=== PATIENT | female | born 1960 | race African-American/Black ===

== ENCOUNTER 2017-07-15 21:06 | Emergency (ER) | payer SELFPAY ==
[~2017-07-15] VITALS: Ht 157.5 cm; Wt 79.5 kg
[2017-07-15] MEDS ORDERED: IBUPROFEN 600MG TABLET PO ONE (22:45)
[2017-07-15] MEDS ORDERED: CYCLOBENZAPRINE 10MG TABLET PO ONE (22:45)
[2017-07-16 00:27] VITALS: BP 151/94
== END 2017-07-16 00:33 | disposition home or self-care (01) ==
LOC: ER 21:06
DX: R51 Headache (principal); J45.909 Unspecified asthma, uncomplicated; E11.9 Type 2 diabetes mellitus without complications; E78.00 Pure hypercholesterolemia, unspecified; Z98.890 Other specified postprocedural states; Z88.0 Allergy status to penicillin; Y08.89XA Assault by other specified means, initial encounter
CPT/HCPCS: 99283